=== PATIENT | female | born 1975 | race African-American/Black ===

== ENCOUNTER 2016-04-29 15:06 | Emergency (ER) | payer MEDICARE, MEDICAID ==
[~2016-04-29] VITALS: Ht 152.4 cm; Wt 80.0 kg
[~2016-04-29 15:06] MED LIST: AMLO10 PO; ATOR40TA49 PO; FURO1TAB93 PO; HYDR-3533 PO; HYDR100T2 PO; METO100T PO; PRAZ1 PO; PRED20 PO
[2016-04-29 15:13] VITALS: BP 217/105; PULSE 101; RESP 16; TEMP 97.8; O2SAT 99
[2016-04-29] MEDS ORDERED: FURO1TAB60 PO (15:26)
[2016-04-29] MEDS ORDERED: HYDR-3801 PO (15:26)
[2016-04-29] MEDS ORDERED: METO100T PO (15:26)
[2016-04-29] MEDS ORDERED: hydrALAZINE HCL 100 MG TAB PO ONE (15:30)
[2016-04-29] MEDS ORDERED: LORazepam 2 MG/ML VIAL IV PUSH ONE (15:30)
[2016-04-29] MEDS ORDERED: hydrALAZINE HCL 50 MG TAB PO ONE (15:31)
--- NOTE | 2016-04-29 15:35 | PD ---
HPI Chief Complaint: Cardiac Complaint Time Seen by Provider: 15:13 Travel History International Travel<30 days: No Contact w/Intl Traveler<30days: No Traveled to known affect area: No History of Present Illness HPI This 40-year-old female is complaining of palpitations and feeling very jittery. She used cocaine for the first time about an hour ago and her symptoms started at that time. She has a history of chronic renal failure secondary to hypertension. She is supposed to be on metoprolol and hydralazine. She has not taken her medications today because she was not at home. She is not having any chest pain. She is not short of breath PFSH Past Medical History Hx Anticoagulant Therapy: No Arthritis: No Asthma: No Autoimmune Disease: No Anxiety: Yes Heart Rhythm Problems: No Cancer: No Cardiovascular Problems: Yes (HTN) High Cholesterol: Yes Chemotherapy: No Chest Pain: No Congestive Heart Failure: Yes COPD: Yes Cerebrovascular Accident: Yes (CVA - NO PERIPHERAL VISION ON LEFT PER PT.) Diabetes: No Diminished Hearing: No Endocrine: No Gastrointestinal Disorders: No (HX OF FECAL IMPACTION) GERD: Yes Genitourinary: No Headaches: Yes Hepatitis: No Hiatal Hernia: No Hypertension: Yes Immune Disorder: No Implanted Vascular Access Dvce: No Kidney Stones: No Musculoskeletal: No Neurologic: Yes (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) Psychiatric: No Reproductive: No Respiratory: Yes (COPD) Immunizations Current: Yes Migraines: Yes Radiation Therapy: No Renal Failure: Yes Seizures: No Sickle Cell Disease: No Thyroid Disease: No Ulcer: No PNEUMOCCOCAL Vaccine (Year): 2 ?: Not : 5 Para: 0 Miscarriage: 0 : 1 Ovarian Cysts: Yes Tubal Ligation: Yes Past Surgical History Abdominal Surgery: Yes (pd shunt placed, d/c'd 12-25-14) Body Medical Devices: right chest port Cardiac Surgery: No Ear Surgery: No Endocrine Surgery: No Eye Surgery: No Genitourinary Surgery: No Gynecologic Surgery: Yes (tubal ligation 1998) Hysterectomy: Yes Joint Replacement: No Neurologic Surgery: No Oral Surgery: Yes (6 teeth extracted 2013) Pacemaker: No Thoracic Surgery: No Other Surgery: Yes Social History Alcohol Use: No Tobacco Use: No Substance Use: No Allergies-Medications (Allergen,Severity, Reaction): Coded Allergies: CANDIE Inhibitors (Verified Allergy, Severe, SWELLING, 04/29/16) Vasotec (Verified Allergy, Severe, Anaphylaxis, 04/29/16) *MDRO Multi-Drug Resistant Organism (Verified Adverse Reaction, Unknown, ) MRSA PCR Screen positive 12/26/14. MRSA blood 01/2015 Reported Meds & Prescriptions Reported Meds & Active Scripts Active Reported Metoprolol Tartrate 100 Mg Tab 100 Mg PO BID Hydralazine (Hydralazine HCl) 100 Mg Tab 100 Mg PO @9,14,21 Take with meals Lasix (Furosemide) 40 Mg Tab 40 Mg PO DAILY Review of Systems General / Constitutional: No: Fever, Chills Eyes: No: Diploplia, Blurred Vision HENT: No: Headaches, Vertigo Cardiovascular: Positive: Palpitations, Tachycardia, No: Chest Pain or Discomfort Respiratory: No: Cough, Shortness of Breath Gastrointestinal: No: Nausea, Vomiting Genitourinary: Positive: Decreased Urinary Output, No: Urgency, Frequency, Dysuria Musculoskeletal: No: Arthralgias Skin: No Rash Endocrine: No: Heat Intolerance Hematologic/Lymphatic: No: Easy Bruising Physical Exam Narrative GENERAL: Well developed female SKIN: Warm and dry. HEAD: Atraumatic. Normocephalic. EYES: Pupils equal and round. No scleral icterus. No injection or drainage. ENT: No nasal bleeding or discharge. Mucous membranes pink and moist. NECK: Trachea midline. No JVD. CARDIOVASCULAR: Regular rate and rhythm. No murmur appreciated. RESPIRATORY: No accessory muscle use. Clear to auscultation. Breath sounds equal bilaterally. GASTROINTESTINAL: Abdomen soft, non-tender, nondistended. Hepatic and splenic margins not palpable. MUSCULOSKELETAL: No obvious deformities. No clubbing. No cyanosis. No edema. NEUROLOGICAL: Awake and alert. No obvious cranial nerve deficits. Motor grossly within normal limits. Normal speech. PSYCHIATRIC: Appropriate mood and affect; insight and judgment normal. Data Data Last Documented VS Vital Signs Date Time Temp Pulse Resp B/P Pulse Ox O2 Delivery O2 Flow Rate FiO2 04/29/16 15:58 88 16 196/101 96 Room Air 04/29/16 15:13 97.8 Orders Basic Metabolic Panel (Bmp) (04/29/16 15:23) Lorazepam Inj (Ativan Inj) (04/29/16 15:30) Hydralazine (Apresoline) (04/29/16 15:31) Labs Laboratory Tests Test 04/29/16 15:27 Sodium Level 137 MEQ/L Potassium Level 3.3 MEQ/L Chloride Level 99 MEQ/L Carbon Dioxide Level 25.4 MEQ/L Anion Gap 13 MEQ/L Blood Urea Nitrogen 31 MG/DL Creatinine 7.90 MG/DL Estimat Glomerular Filtration 7 ML/MIN Rate Random Glucose 106 MG/DL Calcium Level 9.2 MG/DL MDM Medical Decision Making Medical Screen Exam Complete: Yes Emergency Medical Condition: Yes Medical Record Reviewed: Yes Differential Diagnosis Frontal includes adverse effects of cocaine, hypertension Narrative Course EKG shows sinus rhythm at a rate of 100. There is a pattern of LVH with strain. There is no change from previous tracing. Electrolytes have been ordered. Patient be given hydralazine as she has not had it today. She is also due for metoprolol 50 mg and I will defer this . She has been given Ativan and observed. She reports feeling a bit better. Diagnosis Primary Impression: Adverse drug reaction Qualified Code: T88.7XXA - Adverse drug reaction, initial encounter Disposition: DISCHARGE HOME Condition: Stable Jereimah Germain MD Apr 29, 2016 15:35
[2016-04-29 15:41] LABS: POTASSIUM 3.3 MEQ/L (3.5-5.1)
[2016-04-29 15:44] LABS: BICARBONATE 25.4 MEQ/L (21.0-32.0)
[2016-04-29 15:58] VITALS: BP 196/101; PULSE 88; RESP 16; O2SAT 96
[2016-04-29 16:35] VITALS: BP 189/100
--- NOTE | 2016-04-29 16:46 | PD ---
Data Data Last Documented VS Vital Signs Date Time Temp Pulse Resp B/P Pulse Ox O2 Delivery O2 Flow Rate FiO2 04/29/16 16:35 85 16 189/100 98 04/29/16 15:58 Room Air 04/29/16 15:13 97.8 Orders Basic Metabolic Panel (Bmp) (04/29/16 15:23) Lorazepam Inj (Ativan Inj) (04/29/16 15:30) Hydralazine (Apresoline) (04/29/16 15:31) Labs Laboratory Tests Test 04/29/16 15:27 Sodium Level 137 MEQ/L Potassium Level 3.3 MEQ/L Chloride Level 99 MEQ/L Carbon Dioxide Level 25.4 MEQ/L Anion Gap 13 MEQ/L Blood Urea Nitrogen 31 MG/DL Creatinine 7.90 MG/DL Estimat Glomerular Filtration 7 ML/MIN Rate Random Glucose 106 MG/DL Calcium Level 9.2 MG/DL MDM Supervised Visit with SHERMAN: No Narrative Course Patient seen and examined briefly by me. Per Dr. Germain patient had a first ever use of cocaine today. She is a dialysis patient. She complained of anxiety and a mild headache. She states mostly this is resolved at this time. Labs are reassuring and she would like to go home. Denied any chest pain or shortness of breath. She is stable for discharge this time. Discussed dangers of using drugs from the street. 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 Diagnosis Primary Impression: Adverse drug reaction Qualified Code: T88.7XXA - Adverse drug reaction, initial encounter Referrals: Family Practice Physician as needed Patient Instructions: General Instructions, Narcotic given in the ED, Adverse Drug Reaction (ED) Departure Forms: Tests/Procedures Disposition: 01 DISCHARGE HOME Condition: Stable Bipin Bunn MD Apr 29, 2016 16:46
--- NOTE | 2016-04-29 21:31 | EKG ---
Date Performed: 04/29/2016 Time Performed: 15:12:26 PTAGE: 40 years EKG: Sinus rhythm Left ventricular hypertrophy Lateral ST-T changes are probably due to ventricular hypertrophy Abnorm al ECG PREVIOUS TRACING : 01/28/2015 20.38 No significant change from previous tracing noted. DOCTOR: Primo Murray Interpretating Date/Time 04/29/2016 21:29:45
== END 2016-04-29 16:57 | disposition home or self-care (01) ==
LOC: PHED 15:06
DX: T50.995A Adverse effect of other drugs, medicaments and biological substances, initial encounter (principal); N18.9 Chronic kidney disease, unspecified; I12.9 Hypertensive chronic kidney disease with stage 1 through stage 4 chronic kidney disease, or unspecified chronic kidney disease; E78.00 Pure hypercholesterolemia, unspecified; J44.9 Chronic obstructive pulmonary disease, unspecified; Z86.73 Personal history of transient ischemic attack (TIA), and cerebral infarction without residual deficits; I50.9 Heart failure, unspecified; Y92.9 Unspecified place or not applicable
CPT/HCPCS: 80048; 93005; 96374; 99284; J2060

== ENCOUNTER 2016-12-09 08:48 | Emergency (ER) | payer MEDICARE, MEDICAID ==
[~2016-12-09 08:48] MED LIST changes: -AMLO10 PO; -ATOR40TA49 PO; +FURO1TAB60 PO; -FURO1TAB93 PO; -HYDR-3533 PO; +HYDR-3801 PO; -HYDR100T2 PO; -PRAZ1 PO; -PRED20 PO
[2016-12-09 13:48] LABS: AUTOMATED NEUTROPHIL # 6.2 TH/MM3 (1.8-7.7); BASOPHIL % 0.5 % (0.0-2.0); EOSINOPHIL # 0.1 TH/MM3 (0-0.4); EOSINOPHIL % 1.8 % (0.0-4.0); MEAN CELL VOLUME 86.5 FL (80.0-100.0); MEAN CORPUSCULAR HEMOGLOBIN 27.8 PG (27.0-34.0); MEAN CORPUSCULAR HGB CONC 32.1 % (32.0-36.0); NEUT % 78.7 % (16.0-70.0); PLATELET COUNT 274 TH/MM3 (150-450); RED BLOOD COUNT 4.51 MIL/MM3 (4.00-5.30); RED CELL DISTRIBUTION WIDTH 13.1 % (11.6-17.2); WHITE BLOOD COUNT 7.9 TH/MM3 (4.0-11.0)
[2016-12-09 13:49] LABS: HEMO FLAGS DIFF FINAL
[2016-12-09 13:59] LABS: BLOOD UREA NITROGEN 79 MG/DL (7-18); GLOMERULAR FILTRATION RATE 50 ML/MIN (>89)
[2016-12-09 14:00] LABS: ALKALINE PHOSPHATASE 131 U/L (45-117); ALT (GPT) 15 U/L (10-53); ANION GAP 14 MEQ/L (5-15); AST (GOT) 11 U/L (15-37); BICARBONATE 28.4 MEQ/L (21.0-32.0); CHLORIDE 94 MEQ/L (98-107); POTASSIUM 3.5 MEQ/L (3.5-5.1); SODIUM (NA) 136 MEQ/L (136-145); TOTAL BILIRUBIN ADULT 0.4 MG/DL (0.2-1.0)
--- NOTE | 2016-12-09 15:04 | RADRPT ---
EXAM DATE/TIME: 12/09/2016 11:29 [facility] COMPARISON: No previous studies available for comparison. INDICATIONS : Abdominal pain, nausea and vomiting. MEDICAL HISTORY : Renal failure. Dialysis. SURGICAL HISTORY : PD catheter placement and removal. ENCOUNTER: Initial ACUITY: 3 days PAIN SCORE: 7/10 LOCATION: Right upper quadrant MEASUREMENTS: LIVER: 16.5 cm length COMMON DUCT: 4 mm RIGHT KIDNEY: 7.6 x 3.2 x 3.3 cm FINDINGS: LIVER: Normal echotexture without focal lesion or ductal dilatation. Hepatopedal flow. COMMON DUCT: No intraluminal mass or stone visualized. GALLBLADDER: Contains no stones, demonstrates no wall thickening or pericholecystic fluid. PANCREAS: The visualized portions are within normal limits. RIGHT KIDNEY: No evidence of hydronephrosis, stone, or mass. Diffusely echogenic. CONCLUSION: 1. Echogenic kidney consistent with medical renal disease. 2. No evidence for cholelithiasis. Preston Beebe MD on December 09, 2016 at 11:44 Board Certified Radiologist. This report was verified electronically.
--- NOTE | 2016-12-09 18:34 | EP ---
cc: MAGNUS KO MD HISTORY The patient is a young -[place] female patient with a history of hypertension, end-stage renal disease currently on hemodialysis being evaluated for transplant, patient of Dr. Ortega of renal, gets her dialysis Saturday, and Saturday presents to the emergency room today with a three day history of nausea, vomiting, diarrhea, upper abdominal discomfort. She currently rates her discomfort at a 7/10. She denies any fever, urinary symptoms, or any other issues. She has had about three episodes of diarrhea this morning and states that she has not been able to keep much fluid down due to vomiting. She does have a sick contact, states that her granddaughter had some nausea and vomiting and had a urinary tract infection, was seen several days ago in the emergency room. PHYSICAL EXAMINATION GENERAL: On physical examination the patient is a well-developed, young -[place] female patient currently in moderate distress. Vomiting in the emergency room. Awake and oriented times three. HEART: Examination is unremarkable. S1-S2 with no signs of rubs, murmurs or gallops. LUNGS: Examination is unremarkable with clear lungs to auscultation. ABDOMEN: On palpation is soft and tender to palpation mildly at the epigastrium and mildly in the right upper quadrant and left upper quadrant. She has no signs of distention and has no guarding or rebound. She had no CVA tenderness. BACK: Examination did not show any signs of tenderness on palpation or bony tenderness in the midline spine. EXTREMITIES: Examination is unremarkable without clubbing or cyanosis or any edema. NEUROLOGIC: Examination shows that she has cranial nerves II through XII mostly intact with normal strength bilaterally on all four extremities with neurovascular examination unremarkable. ASSESSMENT AND PLAN Differential for this patient would include gastritis versus gastroenteritis versus pancreatitis versus dehydration versus metabolic issues versus renal failure. Lab work returns showing significant BUN and creatinine elevations which would be expected in this patient while on dialysis. The patient had also missed dialysis one day, yesterday. She has a normal potassium. Electrolytes was fairly unremarkable for a dialysis patient. Her lipase is elevated and at this point right upper quadrant ultrasound was also ordered for further evaluation. Right upper quadrant ultrasound shows no signs of acute cholecystitis. At this point, concerning the pancreatic enzyme elevation, the patient was further questioned and she states that she does drink occasionally and finds that she is having trouble drinking alcohol and tolerating alcohol in the past few days. She states that she had a glass of wine the day before she had the nausea and vomiting as well. At this point, I have discussed the findings with the patient and considering her other medical history, I have recommended admission for her. However, the patient states that she does not want to be admitted and after IV fluids, Dilaudid and Zofran in the emergency room she is no longer vomiting and appears much more comfortable. At this point, I have talked to her regarding the possible risk of worsening and pancreatitis and dehydration and have talked to her about the fact that she may be better admitted but if she does not want to be admitted she will need to be closely followed up with primary care physician and dialysis Dr. Ortega. She should follow up on Saturday or tomorrow regarding this issue and should get her dialysis at that time as well. My plan would be to give her symptomatic relief for pain and nausea and vomiting. However, the patient should return should this not work out for her or should she have any worsening in vomiting, pain, fever, and as needed. The plan and the risks have been discussed with her and inpatient admission has been discussed with her but the patient is declining at this time and will try outpatient therapy, although she should return should she have any problems with this issue. Magnus FARNSWORTH /1:25 PM /6:13 PM
== END 2016-12-09 12:30 | disposition home or self-care (01) ==
LOC: PHED 09:00
DX: R11.2 Nausea with vomiting, unspecified (principal); R10.9 Unspecified abdominal pain; R19.7 Diarrhea, unspecified; I12.0 Hypertensive chronic kidney disease with stage 5 chronic kidney disease or end stage renal disease; Z99.2 Dependence on renal dialysis; N18.6 End stage renal disease
CPT/HCPCS: 76705; 80053; 83690; 85025; 87804

== ENCOUNTER 2017-07-28 06:10 | Emergency (ER) | payer MEDICARE, MEDICAID ==
[2017-07-28 06:20] VITALS: BP 220/120; PULSE 88; RESP 18; TEMP 98.8
--- NOTE | 2017-07-28 06:27 | PD ---
HPI Chief Complaint: Toothache Time Seen by Provider: 06:19 Travel History International Travel<30 days: No Contact w/Intl Traveler<30days: No Traveled to known affect area: No History of Present Illness HPI 41-year-old female presents to the emergency department in the [facility] for evaluation of dental pain. Patient has been having dental pain on and off for the past several days but was awakened from sleep at 2 AM and has had constant unremitting pain. Patient has taken [id number] medications without pain relief. Patient has had previous dental extraction. Patient rates pain 10/10 in intensity. Dental pain is affecting the dentition of the left mandible. No reported swelling but does complain of referred ear and neck pain. Patient has history of hypertension with hemodialysis on Saturday. Patient denies other concerns or complaints. No febrile illness. Patient is not diabetic. PFSH Past Medical History Narrative Medical Hypertension renal failure with hemodialysis dyslipidemia CHF COPD CVA ovarian cysts peritoneal dialysis shunt; cocaine use; nursing notes reviewed Hx Anticoagulant Therapy: No Arthritis: No Asthma: No Autoimmune Disease: No Anxiety: Yes Heart Rhythm Problems: No Cancer: No Cardiovascular Problems: Yes (HTN) High Cholesterol: Yes Chemotherapy: No Chest Pain: No Congestive Heart Failure: Yes COPD: Yes Cerebrovascular Accident: Yes (CVA - NO PERIPHERAL VISION ON LEFT PER PT.) Diabetes: No Dialysis: Yes Diminished Hearing: No Endocrine: No Gastrointestinal Disorders: No (HX OF FECAL IMPACTION) GERD: Yes Genitourinary: No Headaches: Yes Hepatitis: No Hiatal Hernia: No Heparin Induced Thrombocytopen: No Hypertension: Yes Immune Disorder: No Implanted Vascular Access Dvce: No Kidney Stones: No Musculoskeletal: No Neurologic: Yes (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) Psychiatric: No Reproductive: No Respiratory: Yes (COPD) Immunizations Current: Yes Migraines: Yes Radiation Therapy: No Renal Failure: Yes Seizures: No Sickle Cell Disease: No Thyroid Disease: No Ulcer: No PNEUMOCCOCAL Vaccine (Year): 2 : 5 Para: 0 Miscarriage: 0 : 1 Ovarian Cysts: Yes Tubal Ligation: Yes Past Surgical History Abdominal Surgery: Yes (pd shunt placed, d/c'd 12-25-14) Body Medical Devices: right chest port Cardiac Surgery: No Ear Surgery: No Endocrine Surgery: No Eye Surgery: No Genitourinary Surgery: No Gynecologic Surgery: Yes (tubal ligation 1998) Hysterectomy: Yes Joint Replacement: No Neurologic Surgery: No Oral Surgery: Yes (6 teeth extracted 2013) Pacemaker: No Thoracic Surgery: No Other Surgery: Yes Social History Alcohol Use: No Tobacco Use: No Substance Use: Yes (COCAINE TODAY) Allergies-Medications (Allergen,Severity, Reaction): Coded Allergies: benazepril (Unverified Allergy, Severe, SWELLING, 12/09/16) captopril (Unverified Allergy, Severe, SWELLING, 12/09/16) enalaprilat (Unverified Allergy, Severe, Anaphylaxis, 12/09/16) fosinopril (Unverified Allergy, Severe, SWELLING, 12/09/16) lisinopril (Unverified Allergy, Severe, SWELLING, 12/09/16) quinapril (Unverified Allergy, Severe, SWELLING, 12/09/16) *MDRO Multi-Drug Resistant Organism (Verified Adverse Reaction, Unknown, ) MRSA PCR Screen positive 12/26/14. MRSA blood 01/2015 Reported Meds & Prescriptions Reported Meds & Active Scripts Active Reported Metoprolol Tartrate 100 Mg Tab 100 Mg PO BID Hydralazine (Hydralazine HCl) 100 Mg Tab 100 Mg PO @9,14,21 Take with meals Lasix (Furosemide) 40 Mg Tab 40 Mg PO DAILY Review of Systems Except as stated in HPI: all other systems reviewed are Neg General / Constitutional: No: Fever, Chills HENT: Positive: Dental Difficulties, No: Neck Pain Cardiovascular: No: Chest Pain or Discomfort Respiratory: No: Shortness of Breath Gastrointestinal: No: Abdominal Pain Genitourinary: No: Flank Pain Neurologic: No: Weakness Psychiatric: Positive: Anxiety Hematologic/Lymphatic: No: Lymph Node Enlargement Physical Exam Narrative GENERAL: Well-developed well-nourished female crying and holding her left face. SKIN: Warm and dry. HEAD: Normocephalic. EYES: No scleral icterus. No injection or drainage. ENT: Mucous membranes moist patient with fractured dentition of the #20 tooth with large dental carry of the #18 dentition gingival edema without fluctuance. Bilateral to tympanic membranes no redness dullness perforation or loss of landmarks. NECK: Supple, trachea midline. No JVD or lymphadenopathy. CARDIOVASCULAR: Regular rate and rhythm without murmurs, gallops, or rubs. RESPIRATORY: Breath sounds equal bilaterally. No accessory muscle use. GASTROINTESTINAL: Abdomen soft, non-tender, nondistended. MUSCULOSKELETAL: No cyanosis, or edema. Left upper extremity AV fistula Data Data Last Documented VS Vital Signs Date Time Temp Pulse Resp B/P (MAP) Pulse Ox O2 Delivery O2 Flow Rate FiO2 07/28/17 06:52 60 18 182/95 (124) 95 Room Air 07/28/17 06:20 98.8 Orders Orders Penicillin V Potassium (Veetids) (07/28/17 06:30) Oxycodone-Acetamin 5-325 Mg (Percocet (07/28/17 06:30) Ondansetron Odt (Zofran Odt) (07/28/17 06:30) Ed Discharge Order (07/28/17 06:53) MDM Medical Decision Making Medical Screen Exam Complete: Yes Emergency Medical Condition: Yes Medical Record Reviewed: Yes Differential Diagnosis Dentalgia, dental caries, dental abscess, avulsed cusp, uncontrolled HTN, intractable pain Narrative Course Patient given penicillin 500 mg 1 dose and Percocet 1 dose; patient is encouraged to follow-up with her dentist and return to the emergency department as needed; patient noted to have elevated BP with h/o HTN --repeat BP 185/95 has not taken her AM BP meds Patient shows improvement of blood pressure after calming down and has received pain medication which is not yet had a chance to absorb therefore anticipate patient's blood pressure will move towards a more acceptable range and is stable for outpatient management with encouragement to take her blood pressure medication this morning. Diagnosis Primary Impression: Dentalgia Additional Impressions: Dental abscess Hypertension Referrals: Dentist call for appointment Primary Care Physician 1 day Patient Instructions: Narcotic given in the ED, General Instructions Med/Other Pt SpecificInfo: Prescription(s) given Scripts Penicillin V Potassium (Penicillin V Potassium) 500 Mg Tab 500 MG PO Q6H for Infection for 7 Days, #28 TAB 0 Refills Prov: Victorina Aguilar MD 07/28/17 Oxycodone-Acetaminophen (Percocet) 5-325 mg Tab 1 TAB PO Q6H Y for PAIN, #5 TAB 0 Refills Prov: Victorina Aguilar MD 07/28/17 Disposition: 01 DISCHARGE HOME Condition: Stable Victorina Aguilar MD Jul 28, 2017 06:27
[2017-07-28] MEDS ORDERED: oxyCODONE/ACETAMINOPHEN 5 MG/325 MG TAB PO ONE (06:30)
[2017-07-28] MEDS ORDERED: ONDANSETRON ODT 4 MG TAB PO ONE (06:30)
[2017-07-28] MEDS ORDERED: PENICILLIN V POTASSIUM 500 MG TAB PO ONE (06:30)
[2017-07-28 06:52] VITALS: BP 182/95; PULSE 60; RESP 18; O2SAT 95
[2017-07-28] MEDS ORDERED: PERC5TAB12 PO (06:56)
[2017-07-28] MEDS ORDERED: PENI500T PO (06:56)
== END 2017-07-28 07:54 | disposition home or self-care (01) ==
LOC: PHED 06:10
DX: K04.7 Periapical abscess without sinus (principal); H92.09 Otalgia, unspecified ear; M54.2 Cervicalgia; F41.9 Anxiety disorder, unspecified; I13.0 Hypertensive heart and chronic kidney disease with heart failure and stage 1 through stage 4 chronic kidney disease, or unspecified chronic kidney disease; I50.9 Heart failure, unspecified; N18.9 Chronic kidney disease, unspecified; J44.9 Chronic obstructive pulmonary disease, unspecified; Z86.73 Personal history of transient ischemic attack (TIA), and cerebral infarction without residual deficits
CPT/HCPCS: 99283